=== PATIENT | male | born 1950 | race Caucasian/White ===

== ENCOUNTER 2019-02-22 00:25 | Inpatient (IN) | payer MEDICAID, MEDICARE ==
[2019-02-22] VITALS (19 sets, daily range): BP systolic 87–127; BP diastolic 45–74
[~2019-02-22] VITALS: Ht 182.9 cm; Wt 68.2 kg
[~2019-02-22 00:25] MED LIST: ADV50100 IH; ALBU6.7H3 IH; ATRIN IH; FAMO-1 PO; LEV500T PO; PRED10TA PO
[2019-02-22] MEDS ORDERED: etomidate 2mg/ml inj. IV STA (00:33)
[2019-02-22] MEDS ORDERED: albuterol 2.5 MG/3 ML nebule ONE (00:43)
[2019-02-22] MEDS ORDERED: albuterol 2.5 MG/3 ML nebule CONTNEB PRN (00:45)
[2019-02-22] MEDS ORDERED: methylPREDNISolone sod succ 125mg/2ml vial IV ONE (00:45)
[2019-02-22] MEDS ORDERED: rocuronium 10mg/ml inj IV ONE ×2 (01:05→08:00)
[2019-02-22] MEDS ORDERED: normal saline 1000ML IV soln IV ONE (01:05)
[2019-02-22 01:06] LABS: ABG BASE EXCESS -13.9 mmol/L (-2.0-3.0); ABG HCO3 17.2 mmol/L (22.0-26.0); ABG OXYGEN SATURATION 92.3 % (95-98); ABG PCO2 (T) 61.5 mmHg (35.0-45.0); ABG PH (T) 7.066 (7.350-7.450); ABG PO2 (T) 87.8 mmHg (83-108); FCOHb 0.9 % (0.5-1.5); FMetHb 0.3 % (0.3-1.12); FO2Hb 91.2 % (94-100); MINUTE VOLUME 8 L/min; PATIENT TEMPERATURE 37.2; PEEP 5 cm H2O; RESPIRATORY RATE 16 b/min; RESPIRATORY RATE (OBSERVED) 16 b/min; TIDAL VOLUME 450 mL; TOTAL HEMOGLOBIN 17.3 G/dl (14.0-17.9)
[2019-02-22] MEDS ORDERED: CefTRIAXone/D5W-Rocephin 1gm 50 ML IV ONE (01:35)
[2019-02-22] MEDS ORDERED: MIDAZolam 5mg/ml 2ml vial IV ONE (01:35)
[2019-02-22 01:37] LABS: BASOPHILS # (AUTO) 0.2 X10'3 (0-0.2); BASOPHILS % (AUTO) 1.2 % (0-1); EOSINOPHILS # (AUTO) 0.9 X10'3 (0-0.9); EOSINOPHILS % (AUTO) 6.9 % (0-6); HEMATOCRIT 50.7 % (42.0-52.0); HEMOGLOBIN 16.6 g/dl (14.0-17.9); LYMPHOCYTES # (AUTO) 3.9 X10'3 (1.1-4.8); LYMPHOCYTES % (AUTO) 29.7 % (21-51); MEAN CORPUSCULAR HEMOGLOBIN 30.1 PG (27.0-31.0); MEAN CORPUSCULAR HGB CONC 32.7 g/dL (33.0-36.5); MEAN PLATELET VOLUME 8.2 FL (7.4-10.4); MONOCYTES # (AUTO) 1.2 X10'3 (0-0.9); MONOCYTES % (AUTO) 9.1 % (2-12); NEUTROPHILS % (AUTO) 53.1 % (42-75); PLATELET COUNT 216 X10'3 (140-440); RED BLOOD COUNT 5.51 X10'6 (4.70-6.10); RED CELL DISTRIBUTION WIDTH 15.4 % (11.5-14.5); WHITE BLOOD COUNT 13.2 X10'3 (4.5-11.0)
[2019-02-22] MEDS: midazolam 100mg in NS 100ml 100 ML IV PRN ×2 (01:47→12:50)
[2019-02-22] MEDS ORDERED: ipratropium 0.5 MG/2.5ML nebule IH ONE (01:50)
[2019-02-22 01:53] LABS: PARTIAL THROMBOPLASTIN TIME 24 SECONDS (22-32)
[2019-02-22 01:56] LABS: ALANINE AMINOTRANSFERASE 83 U/L (12-78); ALBUMIN 3.4 G/DL (3.4-5.0); ALKALINE PHOSPHATASE 99 IU/L (46-116); ANION GAP 13 (8-16); BILIRUBIN,TOTAL 0.4 MG/DL (0.1-1.0); BLOOD UREA NITROGEN 30 MG/DL (7-18); BUN/CREATININE RATIO 18.1 (5.4-32.0); CHLORIDE 107 MMOL/L (99-107); CREATININE 1.66 MG/DL (0.60-1.10); GLUCOSE 212 MG/DL (70-104); SODIUM 139 MMOL/L (135-145); TOTAL CARBON DIOXIDE 18.7 MMOL/L (24-32); TOTAL PROTEIN 6.9 G/DL (6.4-8.2); eGFR 41 ML/MIN
[2019-02-22 02:03] LABS: ASPARTATE AMINO TRANSFERASE 102 U/L (10-37)
[2019-02-22] MEDS ORDERED: magnesium 2GM in 50ml NS 50 ML IV ONE (02:05)
--- NOTE | 2019-02-22 02:11 | NUR ---
MICHAEL GIVENS, FRIEND [phone]
[2019-02-22] MEDS ORDERED: normal saline 1000ML IV soln IVB ONE (02:15)
--- NOTE | 2019-02-22 02:30 | NUR ---
VERSED INCREASED. HE MOVES HIS SHOULDERS SLIGHTLY. NS GTT TO EACH EYE. WARMED BLANKET AROUND HIS HEAD AND 2 FRESH WARMED BLANKETS TO HIS SKIN AND OTHER BLANKETS OVER THE TOP OF THOSE. HIS FRIEND LEFT.
--- NOTE | 2019-02-22 02:35 | NUR ---
HIS BP ELEVATED. HE IS MOVING MORE. DR VERDUZCO INFORMED. HE SAID TO INCREASE THE VERSED. SO DONE.
[2019-02-22] MEDS ORDERED: ondansetron/PF 4mg/2ml inj IV PRN (03:00)
[2019-02-22] MEDS: K, MAG and/or Phos replacement - Verify level? MC SCH ×2 (03:00→08:00)
[2019-02-22] MEDS ORDERED: potassium CL 10mEq/100ml bag 100 ML IV PRN ×2 (03:00)
[2019-02-22] MEDS ORDERED: potassium Cl 20 mEq SR tablet PO PRN ×2 (03:00)
[2019-02-22] MEDS ORDERED: morphine 4 MG/ML inj SYRINge IV PRN (03:00)
[2019-02-22] MEDS ORDERED: ipratropium/albuterol 3ml nebule NEB PRN (03:00)
[2019-02-22] MEDS ORDERED: acetaminophen 650mg rectal suppository RC PRN (03:00)
[2019-02-22] MEDS ORDERED: acetaminophen 325mg tablet PO PRN ×2 (03:00)
[2019-02-22] MEDS ORDERED: midazolam 2 mg/2 ml injection IV PRN (03:00)
[2019-02-22] MEDS ORDERED: morphine 2 MG/ML inj. syringe IV PRN (03:00)
--- NOTE | 2019-02-22 03:08 | NUR ---
DR VERDUZCO AT BEDSIDE, VERSED INCREASED AND HE STATED FOR ME TO ORDER FENTANYL FOR SEDATION. PT IS MOVING AROUND, MOVING HEAD BACK AND FORTH.
[2019-02-22] MEDS ORDERED: FENTANYL-0.9 % NACL/PF 100 ML IV PRN (03:10)
--- NOTE | 2019-02-22 03:20 | NUR ---
ETT SUCTION IN LINE FOR CLEAR SECRETIONS
[2019-02-22] MEDS: FENTANYL-0.9 % NACL/PF 100 ML IV PRN ×2 (03:27→17:04)
[2019-02-22] MEDS: normal saline 1000ml 1,000 ML IV SCH ×2 (03:29→16:17)
[2019-02-22 04:21] LABS: ABG HCO3 17.4 mmol/L (22.0-26.0); ABG OXYGEN SATURATION 87.1 % (95-98); ABG PCO2 (T) 48.2 mmHg (35.0-45.0); ABG PH (T) 7.164 (7.350-7.450); ABG PO2 (T) 56.4 mmHg (83-108); ALLEN'S TEST Positive; FCOHb 0.7 % (0.5-1.5); FMetHb 0.3 % (0.3-1.12); FO2Hb 86.2 % (94-100); MINUTE VOLUME 16 L/min; PATIENT TEMPERATURE 35.2; PEEP 5 cm H2O; RESPIRATORY RATE 22 b/min; RESPIRATORY RATE (OBSERVED) 33 b/min; TIDAL VOLUME 450 mL
--- NOTE | 2019-02-22 05:00 | NUR ---
Patient in room ICU 2043. I have received report from Ana María BARFIELD and had the opportunity to ask questions and assume patient care. Pt from ER on parveen.
[2019-02-22] MEDS: ipratropium/albuterol 3ml nebule NEB SCH ×5 (06:42→22:34)
[2019-02-22] MEDS: CefTRIAXone 2gm/D5W 50ml 50 ML IV SCH (07:27)
[2019-02-22] MEDS ORDERED: etomidate 2mg/ml inj. ONE (08:00)
[2019-02-22] MEDS: methylPREDNISolone sod succ/PF 40mg inj. IV SCH ×3 (08:09→20:04)
[2019-02-22] MEDS: pantoprazole 40 MG vial IV SCH (08:09)
[2019-02-22] MEDS ORDERED: TIOT4MIS5 INH (12:03)
[2019-02-22] MEDS ORDERED: BUDE10.22 INH (12:03)
[2019-02-22] MEDS ORDERED: ringers solution, lactated 500ml IV solution IV ONE ×2 (12:45→13:35)
--- NOTE | 2019-02-22 14:04 | NUR ---
Initial: Pt intubated admit w/ COPD. Remains NPO w/ OG in place. MAP 68 this AM. electrolytes WNL. Will monitor for nutrition support needs if prolonged intubation; recs below. Rec: 1. IF OGTF per MD; Vital AF at 70ml/hr goal 2. upon extubation; advance diet per MD to regular 3. wt per rx Addendum: 02/22/19 at [address] Amended: Links added.
[2019-02-22 14:28] LABS: BASOPHILS % (AUTO) 0.2 % (0-1); EOSINOPHILS % (AUTO) 0 % (0-6); HEMATOCRIT 41.7 % (42.0-52.0); HEMOGLOBIN 13.8 g/dl (14.0-17.9); LYMPHOCYTES # (AUTO) 0.2 X10'3 (1.1-4.8); LYMPHOCYTES % (AUTO) 1.5 % (21-51); MEAN CORPUSCULAR HEMOGLOBIN 30.3 PG (27.0-31.0); MEAN CORPUSCULAR VOLUME 91.8 FL (78-98); MONOCYTES # (AUTO) 0.3 X10'3 (0-0.9); MONOCYTES % (AUTO) 2.4 % (2-12); NEUTROPHILS # (AUTO) 13.6 X10'3 (1.8-7.7); NEUTROPHILS % (AUTO) 95.9 % (42-75); PLATELET COUNT 130 X10'3 (140-440); RED BLOOD COUNT 4.55 X10'6 (4.70-6.10); RED CELL DISTRIBUTION WIDTH 15.4 % (11.5-14.5); WHITE BLOOD COUNT 14.2 X10'3 (4.5-11.0)
[2019-02-22 14:41] LABS: ALANINE AMINOTRANSFERASE 63 U/L (12-78); ALBUMIN 2.1 G/DL (3.4-5.0); ALBUMIN/GLOBULIN RATIO 0.8 (1.1-1.5); ALKALINE PHOSPHATASE 61 IU/L (46-116); ANION GAP 8 (8-16); ASPARTATE AMINO TRANSFERASE 43 U/L (10-37); BILIRUBIN,TOTAL 0.2 MG/DL (0.1-1.0); BLOOD UREA NITROGEN 31 MG/DL (7-18); BUN/CREATININE RATIO 17.3 (5.4-32.0); CHLORIDE 114 MMOL/L (99-107); CREATININE 1.79 MG/DL (0.60-1.10); GLUCOSE 183 MG/DL (70-104); POTASSIUM 4.8 MMOL/L (3.5-5.1); SODIUM 141 MMOL/L (135-145); TOTAL CARBON DIOXIDE 18.6 MMOL/L (24-32); TOTAL PROTEIN 4.7 G/DL (6.4-8.2); eGFR 38 ML/MIN
[2019-02-22 14:51] LABS: CLARITY,URINE CLOUDY (Clear); COLOR,URINE YELLOW (Yellow); GLUCOSE, URINE NEGATIVE (Neg); KETONES,URINE NEGATIVE (Neg); LEUKOCYTE ESTERASE ,URINE NEGATIVE (Neg); NITRITES, URINE NEGATIVE (Neg); OCCULT BLOOD,URINE LARGE (Neg); PH,URINE 5.5 (4.8-8.0); PROTEIN,URINE 30 mg/dl (Neg); UROBILINOGEN,URINE 0.2 E.U/dL (0.2-1.0)
[2019-02-22 14:57] LABS: UA COLLECTION TYPE FOLEY CATH
[2019-02-22 15:03] LABS: HYALINE CASTS 0-3 /LPF (NEGATIVE); SQUAMOUS EPITHELIAL CELL,UR FEW /LPF (FEW)
[2019-02-22 15:04] LABS: BACTERIA,URINE 2+ /HPF (Neg); RBC,URINE 50-100 /HPF (0-2); WBC,URINE 30-50 /HPF (0-4)
[2019-02-22 15:26] LABS: ABG BASE EXCESS -9.8 mmol/L (-2.0-3.0); ABG HCO3 16.4 mmol/L (22.0-26.0); ABG OXYGEN SATURATION 96.6 % (95-98); ABG PCO2 (T) 36.9 mmHg (35.0-45.0); ABG PH (T) 7.265 (7.350-7.450); ABG PO2 (T) 92.5 mmHg (83-108); FCOHb 0.3 % (0.5-1.5); FMetHb 0.3 % (0.3-1.12); MINUTE VOLUME 9 L/min; PEEP 10 cm H2O; RESPIRATORY RATE 12 b/min; RESPIRATORY RATE (OBSERVED) 12 b/min; TIDAL VOLUME 450 mL; TOTAL HEMOGLOBIN 14.5 G/dl (14.0-17.9)
[2019-02-22 15:30] LABS: OXYGEN SATURATION (MIXED VEN) 84.9 % (60-80)
--- NOTE | 2019-02-22 18:30 | NUR ---
Patient in room ICU 2043. I have received report from CAROLYNE Daniel and had the opportunity to ask questions and assume patient care.
--- NOTE | 2019-02-22 19:28 | NUR ---
1400 dose of solumedrol not given/not documented; day shift nurse gone so unable to clarify. Will resume with 2000 dose.
[2019-02-22] MEDS: enoxaparin 40mg/0.4ml syringe SUBCUT SCH (20:04)
[2019-02-22] MEDS ORDERED: OMEP20TA23 PO (20:43)
[2019-02-23] VITALS (24 sets, daily range): BP systolic 105–163; BP diastolic 46–80
[2019-02-23] MEDS: FENTANYL-0.9 % NACL/PF 100 ML IV PRN ×2 (01:03→10:58)
[2019-02-23] MEDS: midazolam 100mg in NS 100ml 100 ML IV PRN ×2 (01:05→10:59)
[2019-02-23] MEDS: normal saline 1000ml 1,000 ML IV SCH ×2 (02:09→18:57)
[2019-02-23] MEDS: methylPREDNISolone sod succ/PF 40mg inj. IV SCH ×4 (02:09→20:01)
[2019-02-23] MEDS: ipratropium/albuterol 3ml nebule NEB SCH ×5 (02:35→20:37)
[2019-02-23 02:57] LABS: ALANINE AMINOTRANSFERASE 59 U/L (12-78); ALBUMIN 2.5 G/DL (3.4-5.0); ALBUMIN/GLOBULIN RATIO 0.9 (1.1-1.5); ALKALINE PHOSPHATASE 62 IU/L (46-116); ANION GAP 9 (8-16); ASPARTATE AMINO TRANSFERASE 37 U/L (10-37); BILIRUBIN,TOTAL 0.3 MG/DL (0.1-1.0); BLOOD UREA NITROGEN 37 MG/DL (7-18); BUN/CREATININE RATIO 22.3 (5.4-32.0); CALCIUM 7.4 MG/DL (8.5-10.1); CHLORIDE 114 MMOL/L (99-107); CREATININE 1.66 MG/DL (0.60-1.10); GLUCOSE 169 MG/DL (70-104); PHOSPHORUS 2.7 MG/DL (2.3-4.5); POTASSIUM 4.8 MMOL/L (3.5-5.1); SODIUM 143 MMOL/L (135-145); TOTAL CARBON DIOXIDE 19.8 MMOL/L (24-32); TOTAL PROTEIN 5.2 G/DL (6.4-8.2); eGFR 41 ML/MIN
[2019-02-23 03:11] LABS: BASOPHILS % (AUTO) 0.1 % (0-1); EOSINOPHILS % (AUTO) 0 % (0-6); HEMATOCRIT 41.3 % (42.0-52.0); HEMOGLOBIN 13.7 g/dl (14.0-17.9); LYMPHOCYTES # (AUTO) 0.5 X10'3 (1.1-4.8); LYMPHOCYTES % (AUTO) 3.2 % (21-51); MEAN CORPUSCULAR HGB CONC 33.1 g/dL (33.0-36.5); MEAN CORPUSCULAR VOLUME 90.6 FL (78-98); MEAN PLATELET VOLUME 8.2 FL (7.4-10.4); MONOCYTES # (AUTO) 0.6 X10'3 (0-0.9); MONOCYTES % (AUTO) 3.8 % (2-12); NEUTROPHILS # (AUTO) 14.4 X10'3 (1.8-7.7); NEUTROPHILS % (AUTO) 92.9 % (42-75); PLATELET COUNT 133 X10'3 (140-440); RED BLOOD COUNT 4.56 X10'6 (4.70-6.10); RED CELL DISTRIBUTION WIDTH 15.6 % (11.5-14.5); WHITE BLOOD COUNT 15.5 X10'3 (4.5-11.0)
[2019-02-23 04:35] LABS: ABG BASE EXCESS -9.1 mmol/L (-2.0-3.0); ABG HCO3 16.4 mmol/L (22.0-26.0); ABG OXYGEN SATURATION 95.3 % (95-98); ABG PCO2 (T) 33.9 mmHg (35.0-45.0); ABG PH (T) 7.301 (7.350-7.450); ABG PO2 (T) 78.8 mmHg (83-108); FCOHb 0.3 % (0.5-1.5); FMetHb 0.2 % (0.3-1.12); FO2Hb 94.8 % (94-100); MINUTE VOLUME 9 L/min; PATIENT TEMPERATURE 36.5; PEEP 10 cm H2O; RESPIRATORY RATE 12 b/min; RESPIRATORY RATE (OBSERVED) 14 b/min; TIDAL VOLUME 450 mL; TOTAL HEMOGLOBIN 14.6 G/dl (14.0-17.9)
--- NOTE | 2019-02-23 06:42 | NUR ---
Received report from CAROLYNE Alexander
--- NOTE | 2019-02-23 06:49 | NUR ---
Problems reprioritized. Patient report given, questions answered & plan of care reviewed with CAROLYNE Toro.
[2019-02-23] MEDS: K, MAG and/or Phos replacement - Verify level? MC SCH (08:00)
[2019-02-23] MEDS: CefTRIAXone 2gm/D5W 50ml 50 ML IV SCH (09:28)
[2019-02-23] MEDS: pantoprazole 40 MG vial IV SCH (09:28)
[2019-02-23] MEDS: enoxaparin 40mg/0.4ml syringe SUBCUT SCH ×2 (09:29→20:01)
[2019-02-23] MEDS: mineral oil/petrolatum ophthal oint EACHEYE SCH ×4 (09:44→19:22)
--- NOTE | 2019-02-23 13:00 | NUR ---
Fentanyl and versed turned off in preparation of weaning parameters.
[2019-02-23] MEDS ORDERED: ipratropium/albuterol 3ml nebule NEB PRN (13:30)
[2019-02-23] MEDS ORDERED: racepinephrine 11.25mg/0.5ml nebule NEB PRN (13:30)
--- NOTE | 2019-02-23 13:49 | NUR ---
Extubated patient. Patient tolerated well, now on 5L NC with O2 saturation 99%. Wheezing heard upon auscultation, respiratory therapist is giving a breathing treatment now.
[2019-02-23] MEDS ORDERED: non-formulary drug (Albuterol Sulfate (Proventil Hfa) 2 PUFFS) IH PRN (13:55)
--- NOTE | 2019-02-23 18:28 | NUR ---
Report given to CAROLYNE Alexander
--- NOTE | 2019-02-23 18:30 | NUR ---
Patient in room ICU 2043. I have received report from CAROLYNE Toro and had the opportunity to ask questions and assume patient care.
[2019-02-23] MEDS: lactobacillus rhamnosus 10,000 MMU CELLS/CAPSULE PO SCH (20:01)
[2019-02-23] MEDS: budesonide 0.5mg/2ml UD nebule IH SCH (20:37)
[2019-02-24] VITALS (15 sets, daily range): BP systolic 132–168; BP diastolic 60–96
[2019-02-24] MEDS: methylPREDNISolone sod succ/PF 40mg inj. IV SCH ×4 (02:15→19:45)
[2019-02-24] MEDS: ipratropium/albuterol 3ml nebule NEB SCH ×4 (02:56→19:12)
[2019-02-24 05:42] LABS: BASOPHILS % (AUTO) 0.1 % (0-1); EOSINOPHILS % (AUTO) 0 % (0-6); HEMATOCRIT 38.1 % (42.0-52.0); HEMOGLOBIN 12.6 g/dl (14.0-17.9); LYMPHOCYTES # (AUTO) 0.4 X10'3 (1.1-4.8); LYMPHOCYTES % (AUTO) 2.7 % (21-51); MEAN CORPUSCULAR HEMOGLOBIN 30.2 PG (27.0-31.0); MEAN CORPUSCULAR HGB CONC 33.2 g/dL (33.0-36.5); MEAN PLATELET VOLUME 8.6 FL (7.4-10.4); MONOCYTES # (AUTO) 0.7 X10'3 (0-0.9); MONOCYTES % (AUTO) 4.5 % (2-12); NEUTROPHILS # (AUTO) 14.8 X10'3 (1.8-7.7); NEUTROPHILS % (AUTO) 92.7 % (42-75); PLATELET COUNT 120 X10'3 (140-440); RED BLOOD COUNT 4.19 X10'6 (4.70-6.10); RED CELL DISTRIBUTION WIDTH 15.5 % (11.5-14.5)
[2019-02-24 05:52] LABS: ALANINE AMINOTRANSFERASE 48 U/L (12-78); ALBUMIN 2.6 G/DL (3.4-5.0); ALBUMIN/GLOBULIN RATIO 0.9 (1.1-1.5); ALKALINE PHOSPHATASE 53 IU/L (46-116); ANION GAP 7 (8-16); ASPARTATE AMINO TRANSFERASE 37 U/L (10-37); BILIRUBIN,TOTAL 0.4 MG/DL (0.1-1.0); BLOOD UREA NITROGEN 36 MG/DL (7-18); BUN/CREATININE RATIO 28.3 (5.4-32.0); CALCIUM 7.8 MG/DL (8.5-10.1); CHLORIDE 113 MMOL/L (99-107); CREATININE 1.27 MG/DL (0.60-1.10); GLUCOSE 137 MG/DL (70-104); MAGNESIUM 2.2 MG/DL (1.5-2.4); PHOSPHORUS 1.8 MG/DL (2.3-4.5); POTASSIUM 3.9 MMOL/L (3.5-5.1); SODIUM 142 MMOL/L (135-145); TOTAL CARBON DIOXIDE 21.9 MMOL/L (24-32); TOTAL PROTEIN 5.4 G/DL (6.4-8.2); eGFR 56 ML/MIN
--- NOTE | 2019-02-24 06:31 | NUR ---
Problems reprioritized. Patient report given, questions answered & plan of care reviewed with CAROLYNE [email or web address].
[2019-02-24] MEDS: pantoprazole 40 MG vial IV SCH (07:44)
[2019-02-24] MEDS: CefTRIAXone 2gm/D5W 50ml 50 ML IV SCH (07:44)
[2019-02-24] MEDS: enoxaparin 40mg/0.4ml syringe SUBCUT SCH ×2 (07:45→19:45)
[2019-02-24] MEDS: mineral oil/petrolatum ophthal oint EACHEYE SCH ×3 (07:45→19:41)
[2019-02-24] MEDS: lactobacillus rhamnosus 10,000 MMU CELLS/CAPSULE PO SCH ×2 (07:45→19:45)
[2019-02-24] MEDS: normal saline 1000ml 1,000 ML IV SCH (07:46)
[2019-02-24] MEDS: K, MAG and/or Phos replacement - Verify level? MC SCH (08:00)
[2019-02-24] MEDS ORDERED: non-formulary drug (Omeprazole Magnesium (Prilosec Otc) 1 TAB) PO SCH (08:00)
[2019-02-24] MEDS ORDERED: non-formulary drug (Tiotropium Bromide (Spiriva Respimat) 2 PUFF) INH SCH (08:00)
[2019-02-24] MEDS: budesonide 0.5mg/2ml UD nebule IH SCH ×2 (08:46→19:12)
--- NOTE | 2019-02-24 13:29 | NUR ---
I have received report from CAROLYNE Borges in the ICU and had the opportunity to ask questions and assume patient care.
--- NOTE | 2019-02-24 14:30 | NUR ---
Pt transferred to bed 3026A, report given. Belongings with him (eye glasses), his friend has left to get his dentures, hearing aids and phone at her house.
--- NOTE | 2019-02-24 16:33 | NUR ---
Reassessment: Pt has been extubated and transferred to the floors. Pt s/p BSS today with recs pureed food with thin liquids d/t difficulty chewing r/t pt being edentulous however pt may be upgraded to regular if dentures are acquired from home. Pt documented with 100% PO intake first meal meeting nutrient needs. No documented LBM however pt with normal bowel sounds per physical assessment. No nutrition diagnosis at this time. Will continue to follow. Rec: 1. Continue pureed diet with advancement per recs 2. Bowel care 3. wt per rx Addendum: 02/24/19 at [address] Amended: Links added.
--- NOTE | 2019-02-24 17:28 | NUR ---
[place] documentation: I have reviewed and agree with all interventions, assessments performed and documented by CAROLYNE Drake. [place] Medication Administration: For this medication-pass time frame, all medication were reviewed, dispensed, administered and documented per hospital policy by CAROLYNE Drake.
--- NOTE | 2019-02-24 18:32 | NUR ---
Student documentation: I have reviewed and agree with all interventions, assessments performed and documented by Alice RN.
[2019-02-25] MEDS: ipratropium/albuterol 3ml nebule NEB SCH ×3 (01:46→14:24)
[2019-02-25] MEDS: mineral oil/petrolatum ophthal oint EACHEYE SCH ×3 (02:00→14:00)
[2019-02-25] MEDS: methylPREDNISolone sod succ/PF 40mg inj. IV SCH ×2 (02:53→08:36)
[2019-02-25 03:00] VITALS: BP 116/61
[2019-02-25 05:14] LABS: BASOPHILS % (AUTO) 0 % (0-1); EOSINOPHILS % (AUTO) 0 % (0-6); HEMATOCRIT 35.8 % (42.0-52.0); HEMOGLOBIN 12.1 g/dl (14.0-17.9); LYMPHOCYTES # (AUTO) 0.4 X10'3 (1.1-4.8); LYMPHOCYTES % (AUTO) 3.8 % (21-51); MEAN CORPUSCULAR HEMOGLOBIN 30.2 PG (27.0-31.0); MEAN CORPUSCULAR HGB CONC 33.9 g/dL (33.0-36.5); MEAN CORPUSCULAR VOLUME 89.1 FL (78-98); MEAN PLATELET VOLUME 8.5 FL (7.4-10.4); MONOCYTES # (AUTO) 0.6 X10'3 (0-0.9); MONOCYTES % (AUTO) 4.8 % (2-12); NEUTROPHILS # (AUTO) 10.6 X10'3 (1.8-7.7); NEUTROPHILS % (AUTO) 91.4 % (42-75); PLATELET COUNT 124 X10'3 (140-440); RED BLOOD COUNT 4.02 X10'6 (4.70-6.10); RED CELL DISTRIBUTION WIDTH 15.2 % (11.5-14.5); WHITE BLOOD COUNT 11.6 X10'3 (4.5-11.0)
[2019-02-25 05:32] LABS: ALANINE AMINOTRANSFERASE 43 U/L (12-78); ALBUMIN 2.5 G/DL (3.4-5.0); ALBUMIN/GLOBULIN RATIO 0.9 (1.1-1.5); ALKALINE PHOSPHATASE 47 IU/L (46-116); ANION GAP 6 (8-16); ASPARTATE AMINO TRANSFERASE 29 U/L (10-37); BILIRUBIN,TOTAL 0.5 MG/DL (0.1-1.0); BLOOD UREA NITROGEN 40 MG/DL (7-18); BUN/CREATININE RATIO 31.3 (5.4-32.0); CALCIUM 7.8 MG/DL (8.5-10.1); CHLORIDE 111 MMOL/L (99-107); CREATININE 1.28 MG/DL (0.60-1.10); GLUCOSE 152 MG/DL (70-104); MAGNESIUM 2.3 MG/DL (1.5-2.4); PHOSPHORUS 2.8 MG/DL (2.3-4.5); POTASSIUM 3.9 MMOL/L (3.5-5.1); SODIUM 140 MMOL/L (135-145); TOTAL CARBON DIOXIDE 22.8 MMOL/L (24-32); TOTAL PROTEIN 5.2 G/DL (6.4-8.2); eGFR 56 ML/MIN
--- NOTE | 2019-02-25 05:42 | NUR ---
[place] documentation: I have reviewed and agree with all interventions, assessments performed and documented by Gail BARFIELD. [place] Medication Administration: For this medication-pass time frame, all medication were reviewed, dispensed, administered and documented per hospital policy by Gail BARFIELD.
[2019-02-25 06:00] VITALS: BP 139/64
--- NOTE | 2019-02-25 06:07 | NUR ---
Patient in room U 3026. I have received report from CAROLYNE Flores and had the opportunity to ask questions and assume patient care. Patient is sitting up in bed watching tv.
--- NOTE | 2019-02-25 06:07 | NUR ---
Problems reprioritized. Patient report given, questions answered & plan of care reviewed with Kelin BARFIELD.
[2019-02-25] MEDS: K, MAG and/or Phos replacement - Verify level? MC SCH (08:00)
[2019-02-25] MEDS: lactobacillus rhamnosus 10,000 MMU CELLS/CAPSULE PO SCH (08:36)
[2019-02-25] MEDS: CefTRIAXone 2gm/D5W 50ml 50 ML IV SCH (08:39)
[2019-02-25] MEDS: enoxaparin 40mg/0.4ml syringe SUBCUT SCH (08:39)
[2019-02-25] MEDS: budesonide 0.5mg/2ml UD nebule IH SCH (10:11)
[2019-02-25 11:00] VITALS: BP 142/70
[2019-02-25] MEDS ORDERED: PRED5TAB PO (14:59)
[2019-02-25 15:00] VITALS: BP 136/87
[2019-02-25] MEDS ORDERED: LEVO500T2 PO (15:01)
[2019-02-25 16:28] VITALS: BP 136/87
--- NOTE | 2019-02-25 17:34 | NUR ---
Patient has been educated re: discharge instructions. Addendum: 02/25/19 at 1759 by Kelin Tolliver RN Patient has been educated on medications, medication schedule, follow up with PCP in 1 week, COPD, weakness, Respiratory Failure, warning signs and symptoms, and when to seek medical attention. Patients medications have been called into [facility] in [facility] per patients request. Patients tele and PIV have been discharged (PIV intact). Patients friend Emilia's present for education. Patient has been given his medications from the pharmacy.
[2019-02-26] MEDS ORDERED: FLU VACC QS2019-20 36MOS UP/PF 60 MCG/0.5 ML SYRINGE IMVAC ONE (12:00)
== END 2019-02-25 17:41 | disposition home or self-care (01) | DRG 208 ==
LOC: ER 00:26 → ED HOLD 02:57 → ICU 2S 04:57 → PCU 3S 02-24 14:20
PROVIDERS: ADMIT Internal Medicine Critical Care Medicine; ATTEND Internal Medicine Critical Care Medicine
PROC: 5A1945Z Respiratory Ventilation, 24-96 Consecutive Hours (ICD-10-PCS; principal; 2019-02-22)
PROC: 0BH17EZ Insertion of Endotracheal Airway into Trachea, Via Natural or Artificial Opening (ICD-10-PCS; 2019-02-22)
DX: J96.00 Acute respiratory failure, unspecified whether with hypoxia or hypercapnia (principal); J44.1 Chronic obstructive pulmonary disease with (acute) exacerbation; E87.3 Alkalosis; E87.2 Acidosis; F17.210 Nicotine dependence, cigarettes, uncomplicated; R00.1 Bradycardia, unspecified; N18.9 Chronic kidney disease, unspecified; Z79.51 Long term (current) use of inhaled steroids; Z79.899 Other long term (current) drug therapy
CPT/HCPCS: 31500; 36415; 36600; 71045; 80053; 81001; 82803; 82810; 82948; 83605; 83735; 84100; 84484; 85018; 85025; 85610; 85730; 87040; 87070; 87081; 87088; 92508; 92616; 93005; 94002; 94003; 94640; 94760; 99291; C9113; G0378; J0696; J1650; J2250; J2920; J2930; J3010; J3475; J7120; J7626